=== PATIENT | female | born 1975 | race Caucasian/White ===

== ENCOUNTER 2017-03-07 02:28 | Emergency (ER) | payer OTHER ==
[~2017-03-07] VITALS: Ht 162.6 cm; Wt 89.0 kg
[2017-03-07 02:30] VITALS: Ht 162.6 cm; Wt 89.0 kg
[2017-03-07] MEDS ORDERED: SOD CHLORIDE 0.9% 500 ML IV STA (02:31)
[2017-03-07] MEDS ORDERED: SOD CHLORIDE 0.9% 100 ML ONE (02:42)
[2017-03-07] MEDS ORDERED: IOHEXOL 300MG/ML 150 ML BTL ONE (02:42)
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
[2017-03-07] MEDS ORDERED: morphine 2 MG INJ IV ONE (03:00)
[2017-03-07] MEDS ORDERED: ONDANSETRON 4 MG INJ IV ONE (03:00)
[2017-03-07 03:02] LABS: BASOPHILS % 0.5 % (0.0-2.0); EOSINOPHILS # 0.4 10^3/ul (0.0-0.5); EOSINOPHILS % 4.9 % (0.0-7.0); HEMATOCRIT 34.1 % (37.0-47.0); HEMOGLOBIN 11.1 g/dl (12.0-16.0); LYMPHOCYTES # 4.9 10^3/ul (0.8-2.9); LYMPHOCYTES % 56.2 % (15.0-51.0); MEAN CORPUSCULAR HEMOGLOBIN 27.5 pg (29.0-33.0); MEAN CORPUSCULAR HGB CONC 32.6 g/dl (32.0-37.0); MEAN CORPUSCULAR VOLUME 84.4 fl (82.0-101.0); MEAN PLATELET VOLUME 11.9 fl (7.4-10.4); MONOCYTE # 0.5 10^3/ul (0.3-0.9); MONOCYTES % 5.7 % (0.0-11.0); NEUTROPHILS % 32.5 % (39.0-77.0); PLATELET COUNT 229 10^3/UL (140-415); RED BLOOD COUNT 4.04 10^6/ul (4.20-5.40); RED CELL DISTRIBUTION WIDTH 14.2 % (11.5-14.5); WHITE BLOOD COUNT 8.8 10^3/ul (4.8-10.8)
[2017-03-07 03:13] LABS: INR 0.95; PROTIME 12.7 Sec (12.2-14.2)
--- NOTE | 2017-03-07 03:13 | RADRPT ---
PROCEDURE: XR left shoulder. CLINICAL INDICATION: Trauma TECHNIQUE: 2 views of the left shoulder were performed. COMPARISON: None. FINDINGS: No fracture or dislocation is seen. No lytic or blastic bony lesion is seen. No significant degene rative change. No definite soft tissue abnormality. IMPRESSION: No definite acute fracture or dislocation. RPTAT: HLBE Brittani Rodarte Physician Date Time Electronically viewed and signed by Brittani Rodarte Physician on 03/07/2017 03:13 LE/
[2017-03-07 03:14] LABS: PARTIAL THROMBOPLASTIN TIME 29.7 Sec (25.0-35.0)
[2017-03-07 03:19] LABS: CREATININE 0.74 mg/dl (0.44-1.00); POTASSIUM 3.5 mmol/L (3.5-5.1)
--- NOTE | 2017-03-07 03:47 | RADRPT ---
PROCEDURE: Noncontrast CT Head. CLINICAL INDICATION: Trauma. TECHNIQUE: Noncontrast CT of the head was obtained. The administered radiation dose was CTDI vol = 45 mGy, DLP = 720 mGy-cm. COMPARISON: No pertinent prior examinations were submitted for comparison. FINDINGS: The ventricles and sulci are within normal limits. There is no acute intracranial hemorrhage or ext ra-axial fluid collection. There is no mass effect. No midline shift is identified. There is no loss of trimble-white differentiation to suggest acute infarction. The orbits are within normal limits. The paranasal sinuses and mastoid air cells are without fluid. No destructive osseous lesion is identified. IMPRESSION: No acute findings. RPTAT: HIKT .Nimesh Minaya MD, MD Date Time Electronically viewed and signed by .Nimesh Minaya MD, on 03/07/2017 03:47 .T/
--- NOTE | 2017-03-07 03:47 | RADRPT ---
PROCEDURE: CT Cervical Spine without contrast. CLINICAL INDICATION: Trauma TECHNIQUE: Noncontrast CT of the cervical spine was performed with axial images. Coronal and sagitta l images were also performed. The administered radiation dose was CTDI vol = 22 mGy, DLP = 549 mGy- cm. COMPARISON: There are no similar studies submitted for comparison. FINDINGS: Vertebral body stature and alignment are maintained. No acute fracture or subluxation is identified. The paravertebral and paraspinous soft tissues are unremarkable. IMPRESSION: No acute fracture or subluxation. RPTAT: HIKT .Nimesh Minaya MD, MD Date Time Electronically viewed and signed by .Nimesh Minaya MD, on 03/07/2017 03:47 .T/
--- NOTE | 2017-03-07 03:58 | RADRPT ---
PROCEDURE: CT chest, abdomen and pelvis with contrast. CLINICAL INDICATION: Injury and pain. TECHNIQUE: CT of the chest, abdomen and pelvis was performed on a multi-detector high-resolution CT scanner. Contiguous axial images were obtained after the administration of 100 cc of Omnipaque 3 00 intravenous contrast. Coronal and sagittal reformatted images were also obtained. Images were r eviewed on the PACS workstation. One or more of the following dose reduction techniques were used: - Automated exposure control. - Adjustment of the mA and/or kV according to patient size. - Use of iterative reconstruction technique. Exam CTD/vol = 18.51 mGy. Total exam DLP = 1311.83 mGy-cm. COMPARISON: None. FINDINGS: Chest: There is no evidence of chest wall mass. There is a 7 mm partially calcified nodule within the left thyroid. There are no enlarged axillary lymph nodes. There are tiny calcified paratracheal and left hilar lymph nodes. There are no enlarged mediastinal or hilar lymph nodes by CT criteria. The heart is normal in size. There is no pericardial thickening or effusion. The aorta is of nor mal course and caliber. There are mild atelectatic changes bilaterally. There are calcified granulo mas within the left lower lobe. There is no parenchymal consolidation or pleural effusion. The cent ral tracheobronchial tree is within normal limits. There is no pneumothorax. Abdomen: The liver is normal in size. There is no focal mass or dilatation of the biliary tree. T he gallbladder is not distended. The spleen, pancreas and bilateral adrenal glands are within zenaida l limits. Bilateral kidneys are normal in size with symmetric enhancement. There is no focal mass, hydronephrosis or hydroureter. There is no retroperitoneal adenopathy. The abdominal aorta is of normal caliber. There is no abnormal bowel wall thickening or distension. There is no bowel obstruction or free air . A normal appendix is identified. There is no diverticulosis or diverticulitis. There is no asci nick. Pelvis: The bladder is unremarkable. The uterus is heterogeneous with a right-sided exophytic fibr oid measuring 3.7 x 3.9 cm. There is a cystic structure within the right adnexa measuring 3.6 x 2.6 cm. There is mild pelvic free fluid. There is no significant pelvic adenopathy. Evaluation of the osseous structures demonstrates no acute fracture. There are defects of bilateral pars interarticularis of L5. There is increase sclerosis surrounding bilateral sacroiliac joints co nsistent with sacroiliitis. IMPRESSION: Heterogeneous uterus with uterine fibroid. Right adnexal 3.6 cm cyst. Mild pelvic free fluid. Bilateral pars defects of L5. Bilateral sacroiliitis. Old granulomatous disease. Otherwise no acute abnormality identified within the chest, abdomen and pelvis. .Osman Ham MD, MD Date Time Electronically viewed and signed by .Osman Ham MD, on 03/07/2017 03:58 .T/
[2017-03-07] MEDS ORDERED: DIAZ-90 PO (04:14)
[2017-03-07] MEDS ORDERED: IBUP800T25 PO (04:14)
[2017-03-07 04:31] VITALS: BP 131/81; PULSE 71; RESP 18; TEMP 98.5
== END 2017-03-07 04:48 | disposition home or self-care (01) ==
LOC: E/R 02:28
DX: S09.90XA Unspecified injury of head, initial encounter (principal); S40.012A Contusion of left shoulder, initial encounter; R07.9 Chest pain, unspecified; V89.2XXA Person injured in unspecified motor-vehicle accident, traffic, initial encounter
CPT/HCPCS: 70450; 71260; 72125; 73030; 74177; 80048; 84703; 85025; 85610; 85730; 93005; 96374; 96375; J2270; J2405; J7040; Q9967; Z7502; Z7610